=== PATIENT | male | born 1985 | race African-American/Black ===

== ENCOUNTER 2016-10-30 11:19 | Emergency (ER) | payer MEDICAID ==
[~2016-10-30] VITALS: Ht 170.2 cm; Wt 60.0 kg
[~2016-10-30 11:19] MED LIST: IMOD2TAB PO; PROM25SU8 PO
[2016-10-30 11:22] VITALS: BP 119/79; PULSE 58; RESP 15; TEMP 98.2; O2SAT 99
--- NOTE | 2016-10-30 11:30 | PD ---
Physical Exam Time Seen by Provider: 11:30 Narrative 31 y/o male here with L eye redness, drainage, itching, irritation. His daughter had similar symptoms and was dx with conjunctivitis. Using the same medication she was rx but his eye is not improved. Vital signs reviewed. Seen at triage desk. Awaiting bed placement. Data Data Last Documented VS Vital Signs Date Time Temp Pulse Resp B/P Pulse Ox O2 Delivery O2 Flow Rate FiO2 10/30/16 11:22 98.2 58 15 119/79 99 MDM Medical Record Reviewed: Yes Supervised Visit with DENIA: Simone Gallegos Oct 30, 2016 11:30
--- NOTE | 2016-10-30 11:49 | PD ---
HPI Chief Complaint: Eye Problems/Injury Time Seen by Provider: 11:47 Travel History International Travel<30 days: No Contact w/Intl Traveler<30days: No Traveled to known affect area: No History of Present Illness HPI 31-year-old male presents to the ED for evaluation of 4 day history of left eye redness, itching, increased tearing, crusting. Patient also endorses clear rhinorrhea and left ear discomfort. Denies fevers, chills, vision changes, cough. Patient states that his daughter had the same symptoms. He's been using allergic eyedrops with no improvement of symptoms. Endorses history of seasonal allergies. PFSH Past Medical History Asthma: Yes Diminished Hearing: No Past Surgical History Other Surgery: Yes (LEFT ARM) Social History Alcohol Use: Yes (OCC) Tobacco Use: No (quit) Substance Use: Yes (PER PATIENT "POT"- last year ) Allergies-Medications (Allergen,Severity, Reaction): Coded Allergies: No Known Allergies (Verified , 01/13/15) Reported Meds & Prescriptions Reported Meds & Active Scripts Active Erythromycin Opth Oint 5 Mg/Gm Oint 1 Applic EACH EYE QID 7 Days Review of Systems Except as stated in HPI: all other systems reviewed are Neg Physical Exam Narrative GENERAL: Well-nourished, well-developed male in no acute distress. SKIN: Warm and dry. HEAD: Normocephalic. Atraumatic. EYES: No scleral icterus. Conjunctiva and palpebral surfaces bilaterally injected, left greater than right. Small amount of mucopurulent discharge in the medial canthus of the left eye. Increased tearing bilaterally. PERRLA. EOMI. ENT: Pearly benitez tympanic membranes bilaterally. Mild posterior cobblestoning, nasal mucosa bluish and boggy. NECK: Supple, trachea midline. No JVD or lymphadenopathy. CARDIOVASCULAR: Regular rate and rhythm without murmurs, gallops, or rubs. RESPIRATORY: Breath sounds clear and equal bilaterally. No accessory muscle use. GASTROINTESTINAL: Abdomen soft, non-tender, nondistended. + Bowel sounds MUSCULOSKELETAL: No cyanosis, or edema. BACK: Nontender without obvious deformity. No CVA tenderness. Data Data Last Documented VS Vital Signs Date Time Temp Pulse Resp B/P Pulse Ox O2 Delivery O2 Flow Rate FiO2 10/30/16 11:22 98.2 58 15 119/79 99 MDM Medical Decision Making Medical Screen Exam Complete: Yes Emergency Medical Condition: Yes Differential Diagnosis Allergic conjunctivitis versus bacterial conjunctivitis versus viral conjunctivitis versus other Narrative Course 31-year-old male presents to the ED for evaluation of 4 day history of left eye redness, itching, increased tearing, crusting. Patient also endorses clear rhinorrhea and left ear discomfort. Denies fevers, chills, vision changes, cough. Patient states that his daughter had the same symptoms. He's been using allergic eyedrops with no improvement of symptoms. Endorses history of seasonal allergies. Vitals reviewed. On physical exam there is erythema and injection of bilateral conjunctiva and palpebral surfaces, left greater than right. There are nasal mucosa is boggy and bluish and there is mild posterior oropharynx cobblestoning, otherwise unremarkable. Patient was prescribed erythromycin ointment 4 times a day each eye, instructed to apply medication as prescribed, wash hands before and after application, follow up with ophthalmology. He indicated understanding of the instructions and is agreeable to the care plan. He stable and discharged home. Diagnosis Primary Impression: Acute conjunctivitis, bilateral Qualified Code: H10.33 - Acute conjunctivitis of both eyes, unspecified acute conjunctivitis type Referrals: [employer] Patient Instructions: Conjunctivitis (ED), General Instructions Departure Forms: Tests/Procedures, Work Release Enter return to work date: Nov 01, 2016 Additional Instructions: Rest, hydrate. Warm cause applied to the eyes in the morning will help to reduce crusting. Apply drops as prescribed, do not touch the tip of the bottle to the eye surface. Wash hands before and after applying eyedrops. Wash pillow cases midway through treatment. Follow-up with the primary care provider or alcohol and drug counselor, Return to the ED for any urgent or emergent medical condition. Med/Other Pt SpecificInfo: Prescription(s) given Scripts Erythromycin Opth Oint 5 Mg/Gm Oint1 Applic EACH EYE QID 7 Days Ref 0 Prov:Javy Mac MD 10/30/16 Disposition: 01 DISCHARGE HOME Condition: Stable Suzy Saenz Oct 30, 2016 11:49
[2016-10-30] MEDS ORDERED: ERYTOIN10 EACH EYE (11:51)
== END 2016-10-30 11:59 | disposition home or self-care (01) ==
LOC: NEPK 11:19
DX: H10.33 Unspecified acute conjunctivitis, bilateral (principal); J34.89 Other specified disorders of nose and nasal sinuses; H92.02 Otalgia, left ear; Z87.09 Personal history of other diseases of the respiratory system
CPT/HCPCS: 99283

== ENCOUNTER 2017-01-05 18:46 | Emergency (ER) | payer MEDICAID ==
[~2017-01-05] VITALS: Ht 167.6 cm; Wt 62.0 kg
[~2017-01-05 18:46] MED LIST changes: +ERYTOIN10 EACH EYE; -IMOD2TAB PO; -PROM25SU8 PO
[2017-01-05 18:49] VITALS: BP 130/74; PULSE 70; RESP 18; TEMP 98.2; O2SAT 98
[2017-01-05] MEDS ORDERED: SODIUM CHLOR 0.9% 1000 ML INJ 1,000 ML IV SCH (20:48)
--- NOTE | 2017-01-05 20:51 | PD ---
HPI Chief Complaint: GI Complaint Time Seen by Provider: 20:49 Travel History International Travel<30 days: No Contact w/Intl Traveler<30days: No Traveled to known affect area: No History of Present Illness HPI 31-year-old male who denies any significant past medical history presents for evaluation nausea, vomiting, diarrhea. Symptoms started yesterday evening. He reports hourly nonbloody emesis as well as approximately 3 or 4 episodes of watery stools. He reports some lower abdominal pain which he feels is secondary to the vomiting. He reports that his children have had the exact same symptoms that they were recently seen in this emergency department and discharged. He denies fevers, chills, flank pain, dysuria. No history of abdominal surgery. He reports that yesterday the family ate pizza and noodles, nothing unusual. He has no other complaints at this time. [facility] Past Medical History Asthma: Yes Diminished Hearing: No Past Surgical History Other Surgery: Yes (LEFT ARM) Social History Alcohol Use: Yes ([facility]) Tobacco Use: Yes Substance Use: Yes (PER PATIENT "POT"- last year ) Allergies-Medications (Allergen,Severity, Reaction): Coded Allergies: No Known Allergies (Verified , 01/05/17) Reported Meds & Prescriptions Reported Meds & Active Scripts Active Zofran (Ondansetron HCl) 4 Mg Tab 4 Mg PO Q6HR PRN Review of Systems Except as stated in HPI: all other systems reviewed are Neg Physical Exam Narrative GENERAL: Well-nourished male who is in no acute distress. SKIN: Warm and dry. HEAD: Atraumatic. Normocephalic. EYES: Pupils equal and round. No scleral icterus. No injection or drainage. ENT: No nasal bleeding or discharge. Mucous membranes pink and moist. NECK: Trachea midline. No JVD. CARDIOVASCULAR: Regular rate and rhythm. No murmur appreciated. RESPIRATORY: No accessory muscle use. Clear to auscultation. Breath sounds equal bilaterally. GASTROINTESTINAL: Abdomen soft, minimal suprapubic tenderness without guarding. MUSCULOSKELETAL: No obvious deformities. No edema. NEUROLOGICAL: Awake and alert. No obvious cranial nerve deficits. Motor grossly within normal limits. Normal speech. PSYCHIATRIC: Appropriate mood and affect; insight and judgment normal. Data Data Last Documented VS Vital Signs Date Time Temp Pulse Resp B/P (MAP) Pulse Ox O2 Delivery O2 Flow Rate FiO2 10/6/17 18:49 98.2 70 18 130/74 (92) 98 Orders Orders Complete Blood Count With Diff (01/05/17 20:48) Comprehensive Metabolic Panel (01/05/17 20:48) Lipase (01/05/17 20:48) Iv Access Insert/Monitor (01/05/17 20:48) Ondansetron Inj (Zofran Inj) (01/05/17 21:00) Sodium Chlor 0.9% 1000 Ml Inj (Ns 1000 M (01/05/17 20:48) Labs Laboratory Tests Test 01/05/17 20:50 White Blood Count 14.8 TH/MM3 Red Blood Count 5.01 MIL/MM3 Hemoglobin 15.6 GM/DL Hematocrit 45.9 % Mean Corpuscular Volume 91.5 FL Mean Corpuscular Hemoglobin 31.1 PG Mean Corpuscular Hemoglobin Concent 34.0 % Red Cell Distribution Width 12.3 % Platelet Count 273 TH/MM3 Mean Platelet Volume 7.4 FL Neutrophils (%) (Auto) 86.5 % Lymphocytes (%) (Auto) 6.3 % Monocytes (%) (Auto) 5.4 % Eosinophils (%) (Auto) 1.5 % Basophils (%) (Auto) 0.3 % Neutrophils # (Auto) 12.8 TH/MM3 Lymphocytes # (Auto) 0.9 TH/MM3 Monocytes # (Auto) 0.8 TH/MM3 Eosinophils # (Auto) 0.2 TH/MM3 Basophils # (Auto) 0.1 TH/MM3 CBC Comment DIFF FINAL Differential Comment Blood Urea Nitrogen 12 MG/DL Creatinine 1.00 MG/DL Random Glucose 98 MG/DL Total Protein 7.6 GM/DL Albumin 4.4 GM/DL Calcium Level 9.1 MG/DL Alkaline Phosphatase 93 U/L Aspartate Amino Transf (AST/SGOT) 26 U/L Alanine Aminotransferase (ALT/SGPT) 27 U/L Total Bilirubin 1.2 MG/DL Sodium Level 140 MEQ/L Potassium Level 3.7 MEQ/L Chloride Level 107 MEQ/L Carbon Dioxide Level 25.4 MEQ/L Anion Gap 8 MEQ/L Estimat Glomerular Filtration Rate 106 ML/MIN Lipase 69 U/L MDM Medical Decision Making Medical Screen Exam Complete: Yes Emergency Medical Condition: Yes Medical Record Reviewed: Yes Differential Diagnosis Gastroenteritis, gastritis, food poisoning, colitis, diverticulitis, appendicitis, cystitis, electrolyte abnormality Narrative Course Physical examination is reassuring. Based on the history of the entire family have the same symptoms, I suspect a viral gastroenteritis as the etiology. He appears well. His abdomen is soft with minimal suprapubic tenderness. Plan is for basic lab work, he will be given IV fluids and Zofran. The patient's laboratories been reviewed. He has mild leukocytosis with a WBC count 14.8she reports that last week he injured his right arm and he was seen at an urgent care center and prescribed a prednisone taper. He could be having a prednisone induced leukocytosis. He feels significant improved after administration of IV fluids and Zofran. He was seen tolerating oral hydration with no difficulty. Discussed signs and symptoms that would warrant returning to the emergency room. He is stable for discharge- he is requesting a note to return to work tomorrow because his job is requiring a work note. Diagnosis Primary Impression: Gastroenteritis Additional Instructions: Medication as needed for nausea. Slowly advance diet as tolerated. Follow-up with primary care physician as needed. Return for any acutely new or worsening symptoms such as intractable vomiting, acutely worsening abdominal pain, fevers Med/Other Pt SpecificInfo: Prescription(s) given Scripts Ondansetron (Zofran) 4 Mg Tab 4 MG PO Q6HR Y for NAUSEA OR VOMITING, #15 TAB 0 Refills Prov: Medina Tristan MD 01/05/17 Disposition: 01 DISCHARGE HOME Condition: Stable Simone Alejandro Jan 05, 2017 20:51
[2017-01-05 20:58] LABS: AUTOMATED NEUTROPHIL # 12.8 TH/MM3 (1.8-7.7); BASOPHIL # 0.1 TH/MM3 (0-0.2); BASOPHIL % 0.3 % (0.0-2.0); EOSINOPHIL # 0.2 TH/MM3 (0-0.4); EOSINOPHIL % 1.5 % (0.0-4.0); HEMATOCRIT 45.9 % (39.0-51.0); HEMO FLAGS DIFF FINAL; LYMPH % 6.3 % (9.0-44.0); LYMPHOCYTE # 0.9 TH/MM3 (1.0-4.8); MEAN CELL VOLUME 91.5 FL (80.0-100.0); MEAN CORPUSCULAR HEMOGLOBIN 31.1 PG (27.0-34.0); MONO % 5.4 % (0.0-8.0); NEUT % 86.5 % (16.0-70.0); PLATELET COUNT 273 TH/MM3 (150-450); RED BLOOD COUNT 5.01 MIL/MM3 (4.50-5.90); RED CELL DISTRIBUTION WIDTH 12.3 % (11.6-17.2); WHITE BLOOD COUNT 14.8 TH/MM3 (4.0-11.0)
[2017-01-05] MEDS ORDERED: ONDANSETRON HCL 4 MG/2 ML VIAL IVP ONE (21:00)
[2017-01-05 21:15] LABS: ALT (GPT) 27 U/L (12-78)
[2017-01-05 21:18] LABS: ALKALINE PHOSPHATASE 93 U/L (45-117); TOTAL BILIRUBIN ADULT 1.2 MG/DL (0.2-1.0)
[2017-01-05 21:23] LABS: ANION GAP 8 MEQ/L (5-15); AST (GOT) 26 U/L (15-37); BICARBONATE 25.4 MEQ/L (21.0-32.0); BLOOD UREA NITROGEN 12 MG/DL (7-18); CHLORIDE 107 MEQ/L (98-107); GLOMERULAR FILTRATION RATE 106 ML/MIN (>89); POTASSIUM 3.7 MEQ/L (3.5-5.1); SODIUM (NA) 140 MEQ/L (136-145)
[2017-01-05] MEDS ORDERED: ZOFR4TAB PO (21:27)
== END 2017-01-05 22:00 | disposition home or self-care (01) ==
LOC: NEPC 18:46
DX: K52.9 Noninfective gastroenteritis and colitis, unspecified (principal); D72.829 Elevated white blood cell count, unspecified; J45.909 Unspecified asthma, uncomplicated
CPT/HCPCS: 80053; 83690; 85025; 96374; 99284; J2405; J7030

== ENCOUNTER 2017-08-03 17:51 | Emergency (ER) | payer SELFPAY ==
[~2017-08-03] VITALS: Ht 167.6 cm; Wt 62.0 kg
[~2017-08-03 17:51] MED LIST changes: -ERYTOIN10 EACH EYE; +ZOFR4TAB PO
[2017-08-03 17:59] VITALS: BP 106/65; PULSE 84; RESP 17; TEMP 98.1; O2SAT 98
[2017-08-03] MEDS ORDERED: SODIUM CHLOR 0.9% 1000 ML INJ 1,000 ML IV SCH (18:21)
--- NOTE | 2017-08-03 18:25 | PD ---
HPI Chief Complaint: GI Complaint Time Seen by Provider: 18:04 Travel History International Travel<30 days: No Contact w/Intl Traveler<30days: No Traveled to known affect area: No History of Present Illness HPI 32-year-old male presents for evaluation. For the past week he has had dysuria and white urethral discharge. He reports a burning sensation when he urinates. He reports that 3 weeks ago he was sexually active with a new female partner. Denies any testicular scrotal pain. Today he reports that he began feeling "shaky" at 1 PM today. He attributed it to his excitement from buying a new car. He also reports that he has been under stress in regards to divorce. He reports that this afternoon he ate peanuts drink coffee, the only sustenance that he had today. He reports that he went to work and became nauseous and vomited 4 times. He is now currently nauseous and feels like he is going to vomit again. He reports abdominal pain but only when he vomits. He has no other complaints at this time. [facility] Past Medical History Asthma: Yes Diminished Hearing: No Past Surgical History Other Surgery: Yes (LEFT ARM) Social History Alcohol Use: Yes ([facility]) Tobacco Use: Yes Substance Use: Yes (PER PATIENT "POT"- last year ) Allergies-Medications (Allergen,Severity, Reaction): Coded Allergies: No Known Allergies (Verified Adverse Reaction, Unknown, 08/03/17) Reported Meds & Prescriptions Reported Meds & Active Scripts Active Zofran (Ondansetron HCl) 4 Mg Tab 4 Mg PO Q6HR PRN Zofran (Ondansetron HCl) 4 Mg Tab 4 Mg PO Q6HR PRN Review of Systems Except as stated in HPI: all other systems reviewed are Neg Physical Exam Narrative GENERAL: Well developed well-nourished male in no acute distress SKIN: Warm and dry. HEAD: Atraumatic. Normocephalic. EYES: Pupils equal and round. No scleral icterus. No injection or drainage. ENT: No nasal bleeding or discharge. Mucous membranes pink and moist. NECK: Trachea midline. No JVD. CARDIOVASCULAR: Regular rate and rhythm. No murmur appreciated. RESPIRATORY: No accessory muscle use. Clear to auscultation. Breath sounds equal bilaterally. GASTROINTESTINAL: Abdomen soft, non-tender, nondistended. Hepatic and splenic margins not palpable. examination reveals descended testicles, nontender, no urethral discharge currently. MUSCULOSKELETAL: No obvious deformities. No clubbing. No cyanosis. No edema. NEUROLOGICAL: Awake and alert. No obvious cranial nerve deficits. Motor grossly within normal limits. Normal speech. PSYCHIATRIC: Appropriate mood and affect; insight and judgment normal. Data Data Last Documented VS Vital Signs Date Time Temp Pulse Resp B/P (MAP) Pulse Ox O2 Delivery O2 Flow Rate FiO2 08/03/17 18:06 16 08/03/17 17:59 98.1 84 106/65 (79) 98 Orders Orders Complete Blood Count With Diff (08/03/17 18:21) Comprehensive Metabolic Panel (08/03/17 18:21) Lipase (08/03/17 18:21) Ondansetron Inj (Zofran Inj) (08/03/17 18:30) Sodium Chlor 0.9% 1000 Ml Inj (Ns 1000 M (08/03/17 18:21) Gc And Chlamydia Pcr (08/03/17 18:21) Azithromycin Powd Pack (Zithromax Powd P (08/03/17 18:30) Ceftriaxone Inj (Rocephin Inj) (08/03/17 18:30) Lidocaine 1% Inj (50 Ml) (Xylocaine 1% I (08/03/17 18:30) Blood Glucose (08/03/17 18:26) Ed Discharge Order (08/03/17 19:41) Labs Laboratory Tests Test 08/03/17 18:30 08/03/17 19:10 White Blood Count 9.7 TH/MM3 Red Blood Count 4.80 MIL/MM3 Hemoglobin 14.8 GM/DL Hematocrit 43.2 % Mean Corpuscular Volume 90.0 FL Mean Corpuscular Hemoglobin 30.9 PG Mean Corpuscular Hemoglobin Concent 34.3 % Red Cell Distribution Width 11.9 % Platelet Count 262 TH/MM3 Mean Platelet Volume 7.7 FL Neutrophils (%) (Auto) 66.2 % Lymphocytes (%) (Auto) 25.0 % Monocytes (%) (Auto) 6.4 % Eosinophils (%) (Auto) 1.9 % Basophils (%) (Auto) 0.5 % Neutrophils # (Auto) 6.4 TH/MM3 Lymphocytes # (Auto) 2.4 TH/MM3 Monocytes # (Auto) 0.6 TH/MM3 Eosinophils # (Auto) 0.2 TH/MM3 Basophils # (Auto) 0.1 TH/MM3 CBC Comment DIFF FINAL Differential Comment Blood Urea Nitrogen 10 MG/DL Creatinine 1.17 MG/DL Random Glucose 82 MG/DL Total Protein 7.0 GM/DL Albumin 4.1 GM/DL Calcium Level 9.0 MG/DL Alkaline Phosphatase 72 U/L Aspartate Amino Transf (AST/SGOT) 29 U/L Alanine Aminotransferase (ALT/SGPT) 23 U/L Total Bilirubin 1.3 MG/DL Sodium Level 138 MEQ/L Potassium Level 4.4 MEQ/L Chloride Level 105 MEQ/L Carbon Dioxide Level 25.4 MEQ/L Anion Gap 8 MEQ/L Estimat Glomerular Filtration Rate 88 ML/MIN Lipase 65 U/L Chlamydia trachomatis DNA (PCR) DETECTED Neisseria gonorrhoeae DNA (PCR) NOT DETECTED MDM Medical Decision Making Medical Screen Exam Complete: Yes Emergency Medical Condition: Yes Medical Record Reviewed: Yes Differential Diagnosis Urethritis, hypoglycemia, gastroenteritis, gastritis Narrative Course The patient will be tested for chlamydia and gonorrhea and treated empirically with Rocephin and azithromycin. Lab work will be obtained. He will be given IV fluids and Zofran. The patient's lab work is been reviewed. CBC and CMP are reassuring. Patient was able to tolerate oral hydration during his hospital stay. The patient is stable for discharge with Zofran prescription. Chlamydia gonorrhea probes are pending at the time of discharge. Diagnosis Primary Impression: Urethritis Additional Impression: Nausea and vomiting Referrals: [facility]. Additional Instructions: Medication as needed for nausea. Have all partners tested and treated for STDs. No sexual contact until at least one week after this. Follow-up at the health department with a primary care physician for further STD testing. Advance diet as tolerated. Return for any acutely new or worsening symptoms. Med/Other Pt SpecificInfo: Prescription(s) given Scripts Ondansetron (Zofran) 4 Mg Tab 4 MG PO Q6HR Y for NAUSEA OR VOMITING, #20 TAB 0 Refills Prov: Beatrice Stubbs MD 08/03/17 Disposition: 01 DISCHARGE HOME Condition: Stable Simone Alejandro August 03, 2017 18:25
[2017-08-03] MEDS ORDERED: cefTRIAXone 250 MG VIAL IM ONE (18:30)
[2017-08-03] MEDS ORDERED: AZITHROMYCIN PWD FOR SUSP 1 GM PACKET PO ONE (18:30)
[2017-08-03] MEDS ORDERED: ONDANSETRON HCL 4 MG/2 ML VIAL IVP ONE (18:30)
[2017-08-03] MEDS ORDERED: LIDOCAINE HCL 1% 50 ML VIAL IM ONE (18:30)
[2017-08-03 18:48] LABS: AUTOMATED NEUTROPHIL # 6.4 TH/MM3 (1.8-7.7); BASOPHIL # 0.1 TH/MM3 (0-0.2); BASOPHIL % 0.5 % (0.0-2.0); EOSINOPHIL # 0.2 TH/MM3 (0-0.4); EOSINOPHIL % 1.9 % (0.0-4.0); HEMATOCRIT 43.2 % (39.0-51.0); HEMOGLOBIN 14.8 GM/DL (13.0-17.0); LYMPHOCYTE # 2.4 TH/MM3 (1.0-4.8); MEAN CORPUSCULAR HEMOGLOBIN 30.9 PG (27.0-34.0); MEAN CORPUSCULAR HGB CONC 34.3 % (32.0-36.0); MEAN PLATELET VOLUME 7.7 FL (7.0-11.0); MONO % 6.4 % (0.0-8.0); MONOCYTE # 0.6 TH/MM3 (0-0.9); NEUT % 66.2 % (16.0-70.0); PLATELET COUNT 262 TH/MM3 (150-450); RED CELL DISTRIBUTION WIDTH 11.9 % (11.6-17.2); WHITE BLOOD COUNT 9.7 TH/MM3 (4.0-11.0)
[2017-08-03] MEDS ORDERED: ZOFR4TAB PO (18:51)
[2017-08-03 19:17] LABS: ALBUMIN 4.1 GM/DL (3.4-5.0); ALT (GPT) 23 U/L (12-78); AST (GOT) 29 U/L (15-37); BICARBONATE 25.4 MEQ/L (21.0-32.0); BLOOD UREA NITROGEN 10 MG/DL (7-18); CHLORIDE 105 MEQ/L (98-107); CREATININE 1.17 MG/DL (0.60-1.30); GLOMERULAR FILTRATION RATE 88 ML/MIN (>89); GLUCOSE,RANDOM 82 MG/DL (74-106); SODIUM (NA) 138 MEQ/L (136-145)
[2017-08-03 19:20] LABS: ALKALINE PHOSPHATASE 72 U/L (45-117); TOTAL BILIRUBIN ADULT 1.3 MG/DL (0.2-1.0)
== END 2017-08-03 20:46 | disposition home or self-care (01) ==
LOC: NEPD 17:51
DX: N34.2 Other urethritis (principal); R11.2 Nausea with vomiting, unspecified; J45.909 Unspecified asthma, uncomplicated; Z72.0 Tobacco use
CPT/HCPCS: 80053; 83690; 85025; 87491; 87591; 96372; 96374; 99284; J0696; J2405; J7030